=== PATIENT | female | born 1960 | race Caucasian/White ===

== ENCOUNTER 2019-12-03 23:34 | Emergency (ER) | payer OTHER ==
[2019-12-04] MEDS ORDERED: TORAdol 30 mg Injection IM ONE (00:10)
[2019-12-04] MEDS ORDERED: Norflex 60 MG/2 ML IM ONE (00:10)
[2019-12-04] MEDS ORDERED: Norflex 60 MG/2 ML ONE (00:17)
[2019-12-04] MEDS ORDERED: TORAdol 30 mg Injection ONE (00:17)
--- NOTE | 2019-12-04 00:19 | ERPHSYRPT ---
- History of Present Illness Time Seen by Provider: 12/04/19 00:15 Source: patient Exam Limitations: no limitations Physician History: 59-year-old female with history of chronic low back pain degenerative disc disease hypertension has underwent extensive testing for her back pain recently and has been advised to go for physical therapy which she is going to start from Thursday. She was given anti-inflammatory gabapentin but she stopped taking it so she started having her pain today and her granddaughter brought her in. Patient mainly complaining about left-sided back pain radiating to the left thigh. She denies any other bowel bladder incontinence or loss of sensation or power on her left lower extremity. Timing/Duration: today Back Pain Location: lumbar spine Back Pain Radiation: lower legs Severity of Pain-Max: mild Severity of Pain-Current: mild Associated Symptoms: denies symptoms Allergies/Adverse Reactions: No Known Drug Allergies Allergy (Unverified 12/03/19 23:41) - Review of Systems Constitutional: No Fever, No Chills Eyes: No Symptoms Ears, Nose, & Throat: No Symptoms Respiratory: No Cough, No Dyspnea Cardiac: No Chest Pain, No Edema, No Syncope Abdominal/Gastrointestinal: No Abdominal Pain, No Nausea, No Vomiting, No Diarrhea Genitourinary Symptoms: No Dysuria Musculoskeletal: Back Pain, No Neck Pain Skin: No Rash Neurological: No Dizziness, No Focal Weakness, No Sensory Changes Psychological: No Symptoms Endocrine: No Symptoms All Other Systems: Reviewed and Negative - Nursing Vital Signs Nursing Vital Signs: Initial Vital Signs Temperature 98.2 F 12/03/19 23:35 Pulse Rate 87 12/03/19 23:35 Respiratory Rate 18 12/03/19 23:35 Blood Pressure 167/105 12/03/19 23:35 O2 Sat by Pulse Oximetry 96 12/03/19 23:35 Pain Scale Pain Intensity [Lower 8 Posterior Back] Pain Intensity 8 - Physical Exam General Appearance: no apparent distress, alert Eye Exam: PERRL/EOMI, eyes nml inspection Neck Exam: normal inspection, non-tender, supple, full range of motion, No meningismus, No midline tenderness Respiratory Exam: normal breath sounds, lungs clear, No respiratory distress Cardiovascular Exam: regular rate/rhythm, normal heart sounds Gastrointestinal Exam: soft, No tenderness, No mass Back Exam: decreased range of motion, muscle spasm Extremity Exam: normal inspection, normal range of motion, No calf tenderness, No pedal edema Neurologic Exam: alert, oriented x 3, cooperative, laundry assistant II-XII nml as tested, normal mood/affect, nml station & gait, sensation nml, No motor deficits Skin Exam: normal color, warm, dry, No rash Ordered Tests: Medication Summary Discontinued Medications Generic Name Dose Route Start Last Admin Trade Name Scott PRN Reason Stop Dose Admin Ketorolac Tromethamine 60 mg 12/04/19 00:10 12/04/19 00:20 Toradol 30 Mg Injection IM 12/04/19 00:11 60 mg STAT ONE Administration Ketorolac Tromethamine Confirm 12/04/19 00:17 Toradol 30 Mg Injection Administered 12/04/19 00:18 Dose 60 mg .ROUTE .STK-MED ONE Orphenadrine Citrate 60 mg 12/04/19 00:10 12/04/19 00:22 Norflex 60 Mg/2 Ml IM 12/04/19 00:11 60 mg STAT ONE Administration Orphenadrine Citrate Confirm 12/04/19 00:17 Norflex 60 Mg/2 Ml Administered 12/04/19 00:18 Dose 60 mg .ROUTE .STK-MED ONE - Progress Progress: improved, pain not gone completely Progress Note: 12/04/19 00:17 CAT scan and other labs from [facility] reviewed. Counseled pt/family regarding: diagnosis, need for follow-up - Departure Departure Disposition: Home Clinical Impression: Sciatica of left side Condition: Stable Critical Care Time: No Referrals: SAMIRA KENNEDY NP [Primary Care Provider] - Instructions: Low Back Pain (DC), Sciatica (DC) Additional Instructions: ELISABETH TOUSSAINT was seen on 12/04/19 n the Emergency Room. At that time you were treated for an emergent condition, during your visit Laboratory, Radiology and/or other procedures may have been ordered. It is very important that you follow-up with your Primary Care Physician SAMIRA KENNEDY NP within the next 24-48 hours to review your Emergency Room visit and the final results of testing that was ordered. Some test results such as Urine Cultures, Blood Cultures, and other cultures if ordered will not be finalized for 24-48 hours. If you do not have a Primary Care Provider please call the medical records department at [phone] ext [phone] to obtain a copy of your results or you may sign into our patient portal to obtain these results by visiting us @ [email or web address] and completing the following steps: 1. Click on the Patient Portal link 2. Click the Patient Self Enrollment Link to complete the enrollment form and entering your 3. Once the enrollment form is completed you will receive an email with a temporary ID and password at the email address you provided. 4. Next choose a user name and password. Your user name must be at least 4 characters long and your password must be at least 4 characters long. 5. Choose a security question from the list and provide your answer to the question. If you already have signed into the Health Portal you may access your Health Care Information 22/09 by the following steps: 1. Login to our website @ [email or web address] 2. Enter your original user name and password. FAQS The [facility] Portal is an online tool that contains your Lab Results, Radiology Reports, Visit History, Discharge Instructions and Health Summary Lab and Radiology Results will not be available for 72 hours on the portal. The Portal is a secure site, passwords are encryted and URLs are re-written so they cannot be copied and pasted. You and authorized family members are the only ones who can access your Portal. Also there is a timeout feature that protects your information if you leave the Portal page open. If you have technical difficulty please use the Contact Us link on the page this will allow you to submit any questions you have regarding the Portal or you may contact the Medical Record Department at [phone] ext [phone]. Prescriptions: Cyclobenzaprine HCl 10 mg [Flexeril 10 MG] 10 mg PO TID #30 tablet Naproxen 375 mg [Naprosyn 375 mg] 375 mg PO BID #30 tablet
[2019-12-04 00:59] VITALS: BP 121/97; PULSE 65; O2SAT 97
== END 2019-12-04 01:06 ==
LOC: ED 23:34
DX: M54.42 Lumbago with sciatica, left side (principal); I10 Essential (primary) hypertension
CPT/HCPCS: 96372; 99284; J1885; J2360

== ENCOUNTER 2020-08-01 08:38 | Day surgery (SDC) | payer OTHER ==
[2020-08-01] MEDS ORDERED: Sodium Chloride 0.9(Preservative Free) 10 ML IJ ONE (08:39)
[2020-08-01] MEDS ORDERED: Depo-Medrol 40 MG/ML IM ONE (08:39)
[2020-08-01] MEDS ORDERED: Xylocaine 1% Vial 30 ML PF IJ ONE (08:39)
[2020-08-01] MEDS ORDERED: DIPRIVAN 200 MG/20 ML IV ONE (09:43)
--- NOTE | 2020-08-01 12:08 | XRAY ---
14 seconds fluoroscopy time in surgery for lumbar DANIELLA.
--- NOTE | 2020-08-01 12:10 | XRAY ---
Indication: Lumbar DANIELLA. Intraoperative fluoroscopy provided for 14 seconds. 2 digital spot images submitted for interpretation demonstrates midline posterior needle tip projecting just posterior to the L5-S1 interspace. Small amount of contrast injected for needle tip placement. Correlate with intraoperative findings/report.
[2020-08-01] MEDS ORDERED: Lactated Ringers 1,000 ML IV ONE (15:54)
== END 2020-08-01 10:26 | disposition home or self-care (01) ==
LOC: SDC-PAIN 08:38
PROVIDERS: ATTEND Psychiatry & Neurology Pain Medicine
DX: M54.16 Radiculopathy, lumbar region (principal); F41.9 Anxiety disorder, unspecified; F32.9 Major depressive disorder, single episode, unspecified; I10 Essential (primary) hypertension; I50.9 Heart failure, unspecified; J44.9 Chronic obstructive pulmonary disease, unspecified; J45.909 Unspecified asthma, uncomplicated; N18.9 Chronic kidney disease, unspecified; E11.9 Type 2 diabetes mellitus without complications; E03.9 Hypothyroidism, unspecified; Z79.899 Other long term (current) drug therapy
CPT/HCPCS: 62323; 72100; 77003; 82947; J1030; J2001; J2704; Q9966

== ENCOUNTER 2020-10-03 07:40 | Day surgery (SDC) | payer OTHER ==
[2020-10-03] MEDS ORDERED: Depo-Medrol 40 MG/ML IM ONE (07:41)
[2020-10-03] MEDS ORDERED: Xylocaine 1% Vial 30 ML PF IJ ONE (07:41)
[2020-10-03] MEDS ORDERED: Sodium Chloride 0.9(Preservative Free) 10 ML IJ ONE (07:41)
[2020-10-03] MEDS ORDERED: DIPRIVAN 200 MG/20 ML IV ONE (08:58)
[2020-10-03] MEDS ORDERED: Lactated Ringers 1,000 ML IV ONE (15:52)
--- NOTE | 2020-10-04 12:02 | XRAY ---
16 seconds of fluoroscopy was used in surgery for a caudal DANIELLA.
--- NOTE | 2020-10-06 23:36 | XRAY ---
Indication: Caudal DANIELLA. Intraoperative fluoroscopy was provided for 16 seconds. A single digital spot image submitted for interpretation demonstrates a posterior needle tip projected over the mid aspect of the sacrum. Some contrast has been injected for needle tip placement. The contrast has drifted toward the right of midline. Correlate with intraoperative findings/report.
== END 2020-10-03 09:27 | disposition home or self-care (01) ==
LOC: SDC-PAIN 07:40
PROVIDERS: ATTEND Psychiatry & Neurology Pain Medicine
DX: M54.16 Radiculopathy, lumbar region (principal); E11.9 Type 2 diabetes mellitus without complications; Z79.899 Other long term (current) drug therapy
CPT/HCPCS: 62323; 72020; 77003; 82947; J1030; J2001; J2704; Q9966

== ENCOUNTER 2020-11-07 07:06 | Day surgery (SDC) | payer OTHER ==
[2020-11-07] MEDS ORDERED: LIDOCAINE HCL 2% 100 MG/5 ML IJ ONE (07:07)
[2020-11-07] MEDS ORDERED: DIPRIVAN 200 MG/20 ML IV ONE (08:09)
[2020-11-07] MEDS ORDERED: Lactated Ringers 1,000 ML IV ONE (08:46)
--- NOTE | 2020-11-07 10:04 | XRAY ---
Indication: Bilateral L4-S1 MBB. Intraoperative fluoroscopy provided for 17 seconds. Single digital spot image submitted for interpretation demonstrates posterior needle tips projecting over the expected left and right L4-S1 nerve roots. Correlate with intraoperative findings/report.
--- NOTE | 2020-11-07 11:03 | XRAY ---
17 seconds of fluoroscopy was used in surgery for a bilateral L4-S1 MBB.
== END 2020-11-07 09:15 | disposition home or self-care (01) ==
LOC: SDC-PAIN 07:06
PROVIDERS: ATTEND Psychiatry & Neurology Pain Medicine
DX: M47.816 Spondylosis without myelopathy or radiculopathy, lumbar region (principal); E11.9 Type 2 diabetes mellitus without complications; Z79.899 Other long term (current) drug therapy
CPT/HCPCS: 64493; 64494; 72020; 77002; 82947; J2704

== ENCOUNTER 2021-01-02 07:50 | Day surgery (SDC) | payer OTHER ==
[2021-01-02] MEDS ORDERED: Xylocaine 1% Vial 30 ML PF IJ ONE (07:51)
[2021-01-02] MEDS ORDERED: Depo-Medrol 40 MG/ML IM ONE (07:51)
[2021-01-02] MEDS ORDERED: Sodium Chloride 0.9% 10 ML FLUSH Syringe IJ ONE (07:51)
[2021-01-02] MEDS ORDERED: DIPRIVAN 200 MG/20 ML IV ONE (09:08)
[2021-01-02] MEDS ORDERED: Lactated Ringers 1,000 ML IV ONE (12:25)
--- NOTE | 2021-01-02 12:41 | XRAY ---
Indication: Caudal DANIELLA. Intraoperative fluoroscopy provided for 14 seconds. 3 digital spot images submitted for interpretation demonstrates posterior caudal needle tip projecting mid sacrum. Small amount of contrast injected for needle tip placement. Correlate with intraoperative findings/report.
--- NOTE | 2021-01-02 13:00 | XRAY ---
14 seconds of fluoroscopy was used in surgery for a caudal DANIELLA.
== END 2021-01-02 09:45 | disposition home or self-care (01) ==
LOC: SDC-PAIN 07:50
PROVIDERS: ATTEND Psychiatry & Neurology Pain Medicine
DX: M54.16 Radiculopathy, lumbar region (principal); E11.9 Type 2 diabetes mellitus without complications; Z79.899 Other long term (current) drug therapy
CPT/HCPCS: 62323; 72100; 77003; 82947; J1030; J2001; J2704; Q9966

== ENCOUNTER 2021-02-06 07:41 | Day surgery (SDC) | payer OTHER ==
[2021-02-06] MEDS ORDERED: BUPIVACAINE 0.5% VIAL IJ ONE (07:42)
[2021-02-06] MEDS ORDERED: Lactated Ringers 1,000 ML IV ONE (08:50)
[2021-02-06] MEDS ORDERED: DIPRIVAN 200 MG/20 ML IV ONE (09:09)
--- NOTE | 2021-02-06 10:17 | XRAY ---
Indication: Bilateral L4-S1 MBB. Intraoperative fluoroscopy provided for 12 seconds. Single digital spot image submitted for interpretation demonstrates posterior needle tips projecting over the expected left and right L4-S1 nerve roots. Correlate with intraoperative findings/report.
--- NOTE | 2021-02-06 10:21 | XRAY ---
12 seconds fluoroscopy time in surgery for bilateral L4-S1 MBB.
== END 2021-02-06 09:33 | disposition home or self-care (01) ==
LOC: SDC-PAIN 07:41
PROVIDERS: ATTEND Psychiatry & Neurology Pain Medicine
DX: M47.816 Spondylosis without myelopathy or radiculopathy, lumbar region (principal); I10 Essential (primary) hypertension; E11.9 Type 2 diabetes mellitus without complications; E03.9 Hypothyroidism, unspecified; Z79.899 Other long term (current) drug therapy
CPT/HCPCS: 64493; 64494; 72020; 77002; 82947; J2704

== ENCOUNTER 2021-03-20 07:00 | Day surgery (SDC) | payer OTHER ==
[2021-03-20] MEDS ORDERED: BUPIVACAINE 0.5% VIAL IJ ONE (07:01)
[2021-03-20] MEDS ORDERED: Xylocaine 1% Vial 30 ML PF IJ ONE (07:01)
[2021-03-20] MEDS ORDERED: Depo-Medrol 40 MG/ML IM ONE (07:01)
[2021-03-20] MEDS ORDERED: Lactated Ringers 1,000 ML IV ONE (08:16)
[2021-03-20] MEDS ORDERED: DIPRIVAN 200 MG/20 ML IV ONE (08:44)
--- NOTE | 2021-03-20 09:37 | XRAY ---
Indication: Bilateral hip and greater trochanter injections. Intraoperative fluoroscopy provided for 1 minute 28 seconds. 4 digital spot images submitted for interpretation demonstrates needle tips projecting lateral to the left/right femur necks and lateral to the left/right greater trochanters. Small amount of contrast injected for all needle tip placement. Correlate with intraoperative findings/report.
--- NOTE | 2021-03-20 10:53 | XRAY ---
One minute and 28 seconds of fluoroscopy was used in surgery for a bilateral greater trochanteric and intra-articular hip injection.
== END 2021-03-20 09:28 | disposition home or self-care (01) ==
LOC: SDC-PAIN 07:00
PROVIDERS: ATTEND Psychiatry & Neurology Pain Medicine
DX: M16.0 Bilateral primary osteoarthritis of hip (principal); M70.62 Trochanteric bursitis, left hip; M70.61 Trochanteric bursitis, right hip; I10 Essential (primary) hypertension; E11.9 Type 2 diabetes mellitus without complications; Z79.899 Other long term (current) drug therapy
CPT/HCPCS: 20610; 73522; 77002; 82947; J1030; J2001; J2704; Q9966

== ENCOUNTER 2021-05-09 13:22 | Emergency (ER) | payer OTHER ==
[2021-05-09] MEDS ORDERED: solu-MEDROL 125 MG, Sterile H2O 10 ml 2 ML IV ONE ×2 (13:28)
[2021-05-09] MEDS ORDERED: PROVENTIL 2.5 MG/3 ML NEB IH ONE ×4 (13:28→15:28)
--- NOTE | 2021-05-09 13:28 | ERPHSYRPT ---
- History of Present Illness Time Seen by Provider: 05/09/21 13:27 Source: patient Exam Limitations: clinical condition Physician History: This is a 61-year-old morbidly obese white female patient who is a current daily smoker of cigarettes and presents to the emergency department with shortness of breath and wheezing that has worsened since last evening. Patient does not use home O2. She has not received any nebulizer treatments. She only uses her inhalers. Patient normally doctors in [facility]. She specifically states she does not want to go back there because of the way she was treated. She was discharged from that facility 2 days ago. She was at that facility in order to be evaluated and received treatment for similar symptoms. Patient has a history of COPD, CHF, peripheral vascular disease (carotid endarterectomy), hypertension, type 2 diabetes, coronary artery disease (three-vessel CABG) hypothyroidism, and chronic recent stasis ulcer disease. Patient is on Plavix and aspirin. She denies chest pain. She is here because of worsening shortness of breath and associated wheezing since last evening. Timing/Duration: yesterday Activities at Onset: none Severity of Dyspnea-Max: moderate Severity of Dyspnea-Current: moderate Possible Cause: occasional episodes Modifying Factors: Improves With: exertion (Worsens), oxygen Associated Symptoms: cough (Proved), wheezing, No chest pain/discomfort Allergies/Adverse Reactions: No Known Drug Allergies Allergy (Verified 05/09/21 13:36) Home Medications: Clopidogrel Bisulfate [Clopidogrel] 1 tab PO DAILY 12/04/19 [History] Furosemide 20 mg [Lasix 20 mg] 1 tab PO DAILY 12/04/19 [History] Gabapentin 2 cap PO TID 12/04/19 [History] Levothyroxine Sodium 1 tab PO DAILY 12/04/19 [History] Lisinopril 10 mg [Zestril 10 MG] 1 tab PO DAILY 12/04/19 [History] Metoprolol Succinate 1 tab PO DAILY 12/04/19 [History] Pravastatin Sodium 1 tab PO HS 12/04/19 [History] Aspirin 81 gm Chew [Baby Aspirin 81 mg Chew] 1 ea DAILY 05/09/21 [History] Hx Tetanus, Diphtheria Vaccination/Date Given: No Hx Influenza Vaccination/Date Given: No Hx Pneumococcal Vaccination/Date Given: No Travel Risk - International Travel Have you traveled outside of the country in past 3 weeks: No - Coronavirus Screening Are you exhibiting any of the following symptoms?: Yes Symptoms: Cough: New Onset, Shortness of Breath Close contact with a COVID-19 positive Pt in past 14-21 Days: No - Review of Systems Constitutional: No Symptoms Eyes: No Symptoms Ears, Nose, & Throat: No Symptoms Respiratory: Cough, Dyspnea, Wheezing Cardiac: No Symptoms Abdominal/Gastrointestinal: No Symptoms Genitourinary Symptoms: No Symptoms Musculoskeletal: No Symptoms Skin: No Symptoms Neurological: No Symptoms Psychological: No Symptoms Endocrine: No Symptoms Hematologic/Lymphatic: No Symptoms Immunological/Allergic: No Symptoms All Other Systems: Reviewed and Negative - Past Medical History Pertinent Past Medical History: Yes Cardiac History: High Cholesterol, Hypertension, Myocardial Infarction ([place]) Respiratory History: Asthma, COPD Endocrine Medical History: Diabetes Type II, Hypothyroidism History: Renal Disease Psycho-Social History: Anxiety, Bipolar, Depression - Past Surgical History Past Surgical History: Yes Cardiac: CABG, Vascular Surgery Female Surgical History: Tubal Ligation Other Surgical History: carotidendarterectomy - Social History Smoking Status: Current every day smoker How long have you smoked: 50 Exposure to second hand smoke: Yes Drug Use: none Patient Lives Alone: No - Nursing Vital Signs Nursing Vital Signs: Initial Vital Signs Temperature 97.0 F 05/09/21 13:23 Pulse Rate 120 H 05/09/21 13:23 Respiratory Rate 28 H 05/09/21 13:23 O2 Sat by Pulse Oximetry 91 L 05/09/21 13:23 Pain Scale Pain Intensity 0 - Physical Exam General Appearance: mild distress, alert, anxiety, obese Eye Exam: PERRL/EOMI, eyes nml inspection Ears, Nose, Throat Exam: hearing grossly normal, normal pharynx Neck Exam: normal inspection, non-tender, supple, full range of motion Respiratory Exam: respiratory distress (Mild), airway intact, wheezing, No chest tenderness Cardiovascular/Chest Exam: normal heart sounds, regular rate/rhythm, murmur, normal peripheral pulses, edema Abdominal/Gastrointestinal Exam: soft, normal bowel sounds, No tenderness Rectal Exam: not done Extremity Exam: normal range of motion, pedal edema (Patient has bilateral chronic venous stasis disease with ulcerations left greater than right. Bilateral lower extremity skin is very dry and cracking) Neurologic Exam: alert, oriented x 3, cooperative, loss claim clerk II-XII nml as tested Skin Exam: dry Lymphatic Exam: No adenopathy SpO2 Interpretation: hypoxic O2 Delivery: Room Air - Course Nursing assessment & vital signs reviewed: Yes EKG Interpreted by Me: RATE (99), Sinus Rhythm, NORMAL AXIS, NORMAL INTERVALS, NORMAL QRS, NORMAL ST-T, Other (ST depression diffusely. No acute ischemic changes. There is no comparison twelve-lead EKG available.) Ordered Tests: Active Orders 24 hr Category Date Time Status Pulley Worker STAT Care 05/09/21 13:28 Active IV Insertion STAT Care 05/09/21 13:28 Active Pulse Oximetry (ED) STAT Care 05/09/21 13:28 Active CHEST 1 VIEW (PORTABLE) Stat Exams 05/09/21 13:28 Completed CBC W DIFF Stat Lab 05/09/21 13:50 Completed CMP Stat Lab 05/09/21 13:50 Completed D-DIMER QUANTITATIVE Stat Lab 05/09/21 13:50 Completed Manual Differential NC Stat Lab 05/09/21 13:50 Completed NT PRO BNP Stat Lab 05/09/21 13:50 Completed TROPONIN Q3H Lab 05/09/21 13:50 Completed TROPONIN Q3H Lab 05/09/21 16:30 Ordered TROPONIN Q3H Lab 05/09/21 19:30 Ordered TROPONIN Q3H Lab 05/09/21 22:30 Ordered TROPONIN Q3H Lab 05/10/21 01:30 Ordered Respiratory Therapy Assessment DAILY RT 05/09/21 13:37 Active Medication Summary Generic Name Dose Route Start Last Admin Trade Name Freq PRN Reason Stop Dose Admin Ceftriaxone Sodium/Dextrose 1 g in 50 mls @ 100 mls/hr 05/09/21 14:43 Rocephin 1 Gm-D5w 50 Ml Bag IV 05/09/21 15:12 STAT STA Discontinued Medications Generic Name Dose Route Start Last Admin Trade Name Freq PRN Reason Stop Dose Admin Albuterol Sulfate 2.5 mg 05/09/21 13:28 05/09/21 13:35 Albuterol Sulfate 2.5 Mg/3 Ml Neb IH 05/09/21 13:29 2.5 mg STAT ONE Administration Albuterol Sulfate Confirm 05/09/21 13:33 Albuterol Sulfate 2.5 Mg/3 Ml Neb Administered 05/09/21 13:34 Dose 2.5 mg IH .STK-MED ONE Methylprednisolone Sodium 0 mg 05/09/21 13:28 05/09/21 13:46 Succinate 125 mg/ Sterile IV 05/09/21 13:29 125 mg Water 2 ml STAT ONE Administration Furosemide 40 mg 05/09/21 14:44 Furosemide 40 Mg/4 Ml Vial IV 05/09/21 14:45 STAT ONE Furosemide Confirm 05/09/21 14:50 Furosemide 40 Mg/4 Ml Vial Administered 05/09/21 14:51 Dose 40 mg .ROUTE .STK-MED ONE Ceftriaxone Sodium/Dextrose Confirm 05/09/21 14:50 Rocephin 1 Gm-D5w 50 Ml Bag Administered 05/09/21 14:51 Dose 1 g in 50 mls @ ud IV .STK-MED ONE Methylprednisolone Sodium Succinate Confirm 05/09/21 13:44 Methylprednis Sod Succ 125 Mg/2 Ml Vial Administered 05/09/21 13:45 Dose 125 mg .ROUTE .STK-MED ONE Sterile Water Confirm 05/09/21 13:44 Water For Injection,Sterile 10 Ml Vial Administered 05/09/21 13:45 Dose 10 ml IJ .STK-MED ONE Lab/Rad Data: Laboratory Result Diagrams 05/09/21 13:50 05/09/21 13:50 Laboratory Results 05/09/21 05/09/21 05/09/21 Range/Units 13:50 13:50 13:50 WBC (4.0-10.5) K/mm3 RBC (4.1-5.4) M/mm3 Hgb (12.0-16.0) gm/dl Hct (35-47) % MCV (78-100) fl MCH (26-32) pg MCHC (32-36) g/dl RDW (11.5-14.0) % Plt Count (150-450) K/mm3 D-Dimer 2251 H* (215-500) ng/mL Sodium 140 (137-145) mmol/L Potassium 5.2 H (3.5-5.1) mmol/L Chloride 104 (98-107) mmol/L Carbon Dioxide 24 (22-30) mmol/L Anion Gap 17.9 H (5-15) MEQ/L BUN 46 H (7-17) mg/dL Creatinine 3.17 H (0.52-1.04) mg/dL Estimated GFR 15.9 ML/MIN Glucose 332 H (74-106) mg/dL Calcium 9.7 (8.4-10.2) mg/dL Total Bilirubin 0.50 (0.2-1.3) mg/dL AST 17 (14-36) U/L ALT 15 (0-35) U/L Alkaline Phosphatase 111 (38-126) U/L Troponin I 0.092 H* (0.000-0.034) ng/mL NT-Pro-B Natriuret Pep 9670 H (0-900) pg/mL Serum Total Protein 7.1 (6.3-8.2) g/dL Albumin 3.7 (3.5-5.0) g/dL 05/09/21 Range/Units 13:50 WBC 12.9 H (4.0-10.5) K/mm3 RBC 4.06 L (4.1-5.4) M/mm3 Hgb 9.8 L (12.0-16.0) gm/dl Hct 33.0 L (35-47) % MCV 81.3 (78-100) fl MCH 24.1 L (26-32) pg MCHC 29.7 L (32-36) g/dl RDW 22.4 H (11.5-14.0) % Plt Count 265 (150-450) K/mm3 D-Dimer (215-500) ng/mL Sodium (137-145) mmol/L Potassium (3.5-5.1) mmol/L Chloride (98-107) mmol/L Carbon Dioxide (22-30) mmol/L Anion Gap (5-15) MEQ/L BUN (7-17) mg/dL Creatinine (0.52-1.04) mg/dL Estimated GFR ML/MIN Glucose (74-106) mg/dL Calcium (8.4-10.2) mg/dL Total Bilirubin (0.2-1.3) mg/dL AST (14-36) U/L ALT (0-35) U/L Alkaline Phosphatase (38-126) U/L Troponin I (0.000-0.034) ng/mL NT-Pro-B Natriuret Pep (0-900) pg/mL Serum Total Protein (6.3-8.2) g/dL Albumin (3.5-5.0) g/dL - Progress Progress: improved, re-examined Air Movement: fair Progress Note: 05/09/21 14:18 Chest x-ray shows cardiomegaly with mild diffuse bilateral haziness. Picture favors CHF. Superimposed pneumonia cannot be ruled out. 05/09/21 15:01 Medical decision making: This patient was discussed with Dr. Garces who is the emergency room physician at [facility]. I reviewed the patient history, physical findings, x-ray and laboratory results. He accepts the patient in transfer. Blood Culture(s) Obtained: Yes Counseled pt/family regarding: lab results, diagnosis, need for follow-up, rad results - Departure Departure Disposition: Transfer Clinical Impression: CHF exacerbation, Acute renal failure, Hyperglycemia, Hypoxia, Chronic venous stasis dermatitis of both lower extremities, Non-STEMI (non-ST elevated myocardial infarction), Elevated d-dimer Condition: Stable Critical Care Time: Yes Critical Care Time(excluding separately billable procedures): Critical 30-74 mins (45 minutes) Referrals: SAMIRA KENNEDY, PALLETIZER [Primary Care Provider] - Follow up/PCP as directed Instructions: Heart Failure
[2021-05-09] MEDS ORDERED: Sterile H2O 10 ml IJ ONE (13:44)
[2021-05-09] MEDS ORDERED: solu-MEDROL ONE (13:44)
--- NOTE | 2021-05-09 14:06 | XRAY ---
Indication: Cough and short of breath. Comparison: None Portable chest demonstrates cardiomegaly, mild diffuse bilateral hazy interstitial opacities, and small left effusion favoring cardiac decompensation/CHF. Superimposed pneumonia not completely excluded. Bony thorax intact with sternotomy wires.
[2021-05-09 14:15] LABS: Hemoglobin 9.8 gm/dl (12.0-16.0); Mean Cell Volume 81.3 fl (78-100); Mean Corpuscular Hemoglobin 24.1 pg (26-32); Mean Corpuscular Hgb Concent. 29.7 g/dl (32-36); Platelet Count 265 K/mm3 (150-450); Red Blood Count 4.06 M/mm3 (4.1-5.4); Red Cell Distribution Width 22.4 % (11.5-14.0); White Blood Count 12.9 K/mm3 (4.0-10.5)
[2021-05-09 14:36] LABS: ALBUMIN 3.7 g/dL (3.5-5.0); ANION GAP 17.9 MEQ/L (5-15); BILIRUBIN,TOTAL 0.5 mg/dL (0.2-1.3); Calcium 9.7 mg/dL (8.4-10.2); Creatinine 1 3.17 mg/dL (0.52-1.04); EST GLOMERULAR FILTRATION RATE 15.9 ML/MIN; Potassium 5.2 mmol/L (3.5-5.1); Total Protein 7.1 g/dL (6.3-8.2)
[2021-05-09] MEDS ORDERED: ROCEPHIN 1 Gm-D5w 50 ml Bag** 1 G/50 ML IVPB IV STA (14:43)
[2021-05-09] MEDS ORDERED: Lasix 40 MG/4 ML IV ONE (14:44)
[2021-05-09] MEDS ORDERED: Lasix 40 MG/4 ML ONE (14:50)
[2021-05-09] MEDS ORDERED: ROCEPHIN 1 Gm-D5w 50 ml Bag** 1 G/50 ML IVPB IV ONE (14:50)
[2021-05-09] MEDS ORDERED: ENOXAPARIN SODIUM SQ STA (15:24)
[2021-05-09] MEDS ORDERED: ENOXAPARIN SODIUM SQ ONE (15:50)
[2021-05-09 16:04] LABS: BAND 1 % (0.0-2.0); Eosinophil 2 % (0.00-3.0); Lymphocytes 10 % (24-44); Monocyte 5 % (0.0-12.0); Neutrophils 82 % (36.0-66.0); Platelet Estimate NORMAL (NORMAL); Total Cells Counted 100
[2021-05-09 16:05] LABS: Hypochromia 1+; Polychromasia 1+
[2021-05-09 16:31] VITALS: BP 148/98; PULSE 78; O2SAT 93
== END 2021-05-09 16:36 | disposition left against medical advice (07) ==
LOC: ED 13:22
DX: I50.9 Heart failure, unspecified (principal); I21.4 Non-ST elevation (NSTEMI) myocardial infarction; N17.9 Acute kidney failure, unspecified; R09.02 Hypoxemia; I87.2 Venous insufficiency (chronic) (peripheral); R79.1 Abnormal coagulation profile; E11.65 Type 2 diabetes mellitus with hyperglycemia; J44.9 Chronic obstructive pulmonary disease, unspecified; I25.10 Atherosclerotic heart disease of native coronary artery without angina pectoris; E78.5 Hyperlipidemia, unspecified; Z72.0 Tobacco use; Z79.01 Long term (current) use of anticoagulants; Z79.899 Other long term (current) drug therapy; I11.0 Hypertensive heart disease with heart failure
CPT/HCPCS: 36000; 36415; 71045; 80053; 83880; 84484; 85025; 85379; 93041; 94640; 94760; 96365; 96372; 96374; 96375; 99284; 99291; J0696; J1650; J1940; J2930; J7609; A9270-GY